=== PATIENT | female | born 1935 | race Caucasian/White ===

== ENCOUNTER 2019-04-17 11:21 | Outpatient (CLI) | payer MEDICARE, MEDICAID, SELFPAY ==
[2019-04-17 11:47] LABS: Basophils Absolute Auto 0.1 K/mm3 (0.0-0.1); Basophils Percent Auto 0.6 % (0.2-1.2); Eosinophils Absolute Auto 0.3 K/mm3 (0-0.3); Eosinophils Percent Auto 3.3 % (0-4.4); Hematocrit 45.7 % (37.0-47.0); Hemoglobin 14.4 g/dL (12.0-15.0); Immature Granulocyte Absolute 0.02 K/mm3 (0.00-0.031); Immature Granulocyte Percent A 0.2 % (0-0.5); Lymphocytes Absolute Auto 2.68 K/mm3 (0.9-3.2); Lymphocytes Percent Auto 29.8 % (18.3-44.2); Mean Corpuscular HGB Conc 31.5 g/dl (32-36); Mean Corpuscular Hemoglobin 30.1 pg (26-34); Mean Corpuscular Volume 95.6 fl (80-100); Mean Platelet Volume 9.5 fl (7.4-10.4); Monocytes Absolute Auto 0.6 K/mm3 (0.1-0.6); Monocytes Percent Auto 6.7 % (2.6-8.5); Neutrophils Absolute Auto 5.3 K/mm3 (1.3-6.7); Neutrophils Percent Auto 59.4 % (45.5-73.1); Platelet Count Result 326 k/mm3 (150-375); Red Blood Count 4.78 M/mm3 (4.2-5.4); Red Cell Distribution Width 12.8 % (11.5-14.5)
[2019-04-17 11:59] LABS: Alanine Aminotransferase 16 U/L (4-35); Albumin Level 4.4 g/dL (3.5-5.1); Alkaline Phosphatase 93 U/L (38-126); Aspartate Amino Transferase 24 U/L (14-36); Bilirubin,Total 0.3 mg/dL (0.2-1.3); Blood Urea Nitrogen 20 mg/dL (7-17); Calcium 10.2 mg/dL (8.4-10.2); Carbon Dioxide 32 mmol/L (22-30); Chloride 104 mmol/L (98-107); Estimated Glomerular Filt Rate 47; Glucose 99 mg/dL (65-105); Potassium 4.2 mmol/L (3.4-5.0); Sodium 141 mmol/L (137-145)
== END 2019-04-17 11:22 | disposition home or self-care (01) ==
LOC: ANHSURGERY 11:30
PROVIDERS: PCP Physician Assistant; Visit Provider Surgery
DX: K42.0 Umbilical hernia with obstruction, without gangrene (principal)
CPT/HCPCS: 36415; 80053; 85025

== ENCOUNTER 2019-08-04 00:23 | Outpatient (CLI) | payer MEDICARE, MEDICAID, SELFPAY ==
[2019-08-04 20:58] LABS: SARS-CoV-2 RNA PCR Negative
== END 2019-08-04 00:24 | disposition home or self-care (01) ==
LOC: ANHCOVIDDT 00:23
PROVIDERS: PCP Physician Assistant; Visit Provider Surgery
DX: Z01.812 Encounter for preprocedural laboratory examination (principal); Z11.59 Encounter for screening for other viral diseases
CPT/HCPCS: 87635; C9803; U0003

== ENCOUNTER 2019-08-04 08:11 | Outpatient (CLI) | payer MEDICARE, MEDICAID, SELFPAY ==
[2019-08-04 08:53] LABS: Basophils Absolute Auto 0.1 K/mm3 (0.0-0.1); Eosinophils Absolute Auto 0.3 K/mm3 (0-0.3); Eosinophils Percent Auto 4.2 % (0-4.4); Hematocrit 45.8 % (37.0-47.0); Hemoglobin 14.6 g/dL (12.0-15.0); Immature Granulocyte Absolute 0.02 K/mm3 (0.00-0.031); Immature Granulocyte Percent A 0.3 % (0-0.5); Lymphocytes Percent Auto 33.3 % (18.3-44.2); Mean Corpuscular HGB Conc 31.9 g/dl (32-36); Mean Corpuscular Hemoglobin 30.2 pg (26-34); Mean Corpuscular Volume 94.8 fl (80-100); Mean Platelet Volume 9.9 fl (7.4-10.4); Monocytes Absolute Auto 0.7 K/mm3 (0.1-0.6); Monocytes Percent Auto 8.3 % (2.6-8.5); Neutrophils Absolute Auto 4.1 K/mm3 (1.3-6.7); Neutrophils Percent Auto 52.9 % (45.5-73.1); Platelet Count Result 326 k/mm3 (150-375); Red Blood Count 4.83 M/mm3 (4.2-5.4); White Blood Count 7.8 K/mm3 (4.5-10.0)
[2019-08-04 09:05] LABS: Alanine Aminotransferase 12 U/L (4-35); Albumin Level 4.5 g/dL (3.5-5.1); Alkaline Phosphatase 114 U/L (38-126); Aspartate Amino Transferase 23 U/L (14-36); Bilirubin,Total 0.4 mg/dL (0.2-1.3); Blood Urea Nitrogen 19 mg/dL (7-17); Calcium 9.4 mg/dL (8.4-10.2); Carbon Dioxide 29 mmol/L (22-30); Chloride 105 mmol/L (98-107); Estimated Glomerular Filt Rate > 60; Glucose 99 mg/dL (65-105); Potassium 4.1 mmol/L (3.4-5.0); Sodium 143 mmol/L (137-145)
== END 2019-08-04 08:12 | disposition home or self-care (01) ==
LOC: ANHSURGERY 08:13
PROVIDERS: PCP Physician Assistant; Visit Provider Surgery
DX: K42.9 Umbilical hernia without obstruction or gangrene (principal)
CPT/HCPCS: 36415; 80053; 85025

== ENCOUNTER 2019-08-07 01:30 | Day surgery (SDC) | payer MEDICARE, MEDICAID, SELFPAY ==
[2019-04-11 09:21] VITALS: BMI 28.3
--- NOTE | 2019-04-24 07:13 | PM.HPGS ---
History of Present Illness History of Present Illness Consent: Risks, benefits, and alternatives of an open umbilical hernia repair with sutures have been discussed and questions answered. Patient agrees to proceed with procedure. Chief complaint: Umbilical Hernia Narrative: Mariann Kauffman is a 83 year old female that recently presented to the office after recently being seen in an [facility] for an evaluation of an umbilical hernia. Patient reports noticing a bulge at her umbilicus 4-6 months ago. Patient reports the area is becoming sore and is getting larger. Patient reports she notices the bulge everyday and nothing seems to help. She reports that the hernia just bothers her all the time and causes pain with palpation. She reports that the hernia is reducible but the majority of the time is out. Patient reports she is able to sleep on her stomach. Patient reports that she regular BM. She does reports a lump by the rectum, she is not sure if this is prolapsing again or if this is a hemorrhoid. Patient reports that she had a hysterectomy and appendectomy in 1971, a bladder and bowel tie up at different times, and cataract surgery in the past. Other medical history includes asthma, GERD, and hypertension. Patient denies ever having a colonoscopy Review of Systems Constitutional: Constitutional: Reports no additional constitutional complaints, Reports fatigue and Denies malaise Eyes: Eyes: Denies change in vision and Denies loss of vision ENT: Reports Normal hearing present, Denies change in voice, Denies dizziness, Denies hoarseness and Denies sore throat Cardiovascular: Cardiovascular: Denies chest pain, Denies leg edema and Denies dyspnea Respiratory: Respiratory: Denies cough, Denies dyspnea and Denies wheezing Gastrointestinal: Gastrointestinal: Denies hematochezia, Denies change in bowel habits and Denies heartburn Genitourinary: Genitourinary: Denies urinary frequency and Denies urinary incontinence Neurologic: Reports Normal hearing present, Denies confusion, Denies dizziness, Denies loss of vision, Denies memory loss and Denies seizure-like activity Psychiatric: Psychiatric: Denies confusion, Denies depression and Denies memory loss Endocrine: Endocrine: Denies cold intolerance and Reports fatigue Hematologic/Lymphatic: Hematologic/Lymphatic: Denies easy bleeding and Denies easy bruising Allergic/Immunologic: Allergic/Immunologic: Denies wheezing PMFSH Social History Social History Smoking status: Never smoker Alcohol intake: never Meds Home Medications and Allergies Home Medications Medication Instructions Recorded Confirmed Type alendronate 70 mg WEEKLY 01/10/19 04/11/19 History Al hyd-Mg tr-alg ac-sod bicarb 80 1 tablet DAILY 02/21/19 04/11/19 History mg-14.2 mg chewable tablet L. gasseri-B. bifidum-B longum 1.5 1 cap PO DAILY 02/21/19 04/11/19 History billion cell capsule acetaminophen 325 mg tablet 325 mg PO Q6H PRN 02/21/19 04/11/19 History diltiazem HCl 240 mg 240 mg PO DAILY 02/21/19 04/11/19 History capsule,extended release 24 hr polyethylene glycol 3350 17 gram 17 gm PO DAILY 02/21/19 04/11/19 History oral powder packet ascorbic acid (vitamin C) [Vitamin 250 mg PO BID 04/11/19 04/11/19 History C] calcium carbonate-vitamin D3 1 tablet PO DAILY 04/11/19 04/11/19 History [Calcium 600 with Vitamin D3] dextromethorphan-guaifenesin 1 tab-cap PO ONCE PRN 04/11/19 04/11/19 History [Coricidin HBP Chest Josh-Cough] przimupn-ihd-zswh-FA-lutein 1 tablet PO DAILY 04/11/19 04/11/19 History [Multivitamin Women 50 Plus] omeprazole 20 mg PO BID 04/11/19 04/11/19 History Allergies Allergy/AdvReac Type Severity Reaction Status Date / Time doxycycline Allergy Severe Palpitation Verified 04/11/19 09:11 s pain meds AdvReac Unknown Palpitation Uncoded 04/11/19 09:11 s Exam Const: General: coop
[2019-08-07] VITALS (10 sets, daily range): BP systolic 113–158; BP diastolic 56–75; PULSE 70–84; RESP 12–26; TEMP 36.3–36.5; O2SAT 92–100
[2019-08-07] MEDS: LACTATED RINGERS 1,000 ML 30 ML IV CONT (10:30)
--- NOTE | 2019-08-07 11:12 | PM.HPGS ---
History of Present Illness History of Present Illness Consent: Risks, benefits, and alternatives of an open umbilical hernia repair with sutures have been discussed and questions answered. Patient agrees to proceed with procedure. Chief complaint: Umbilical Hernia Narrative: Mariann Kauffman is a 83 year old white female that recently presented to the office after being seen in [facility] for an evaluation of an umbilical hernia. Patient reports noticing a bulge at her umbilicus 7- 9 months ago. Patient reports the area is becoming sore and is getting larger. Patient reports she notices the bulge everyday and nothing seems to help. She reports that the hernia just bothers her all the time and causes pain with palpation. She reports that the hernia is reducible but the majority of the time is out. Patient reports she is able to sleep on her stomach. Patient reports that she regular BM. She does reports a lump by the rectum, she is not sure if this is prolapsing again or if this is a hemorrhoid. Patient reports that she had a hysterectomy and appendectomy in 1971, a bladder and bowel tie up at different times, and cataract surgery in the past. Other medical history includes asthma, GERD, and hypertension. Patient denies ever having a colonoscopy Review of Systems Constitutional: Constitutional: Reports no additional constitutional complaints, Reports fatigue and Denies malaise Eyes: Eyes: Denies change in vision and Denies loss of vision ENT: Reports Normal hearing present, Denies change in voice, Denies dizziness, Denies hoarseness and Denies sore throat Cardiovascular: Cardiovascular: Denies chest pain, Denies leg edema and Denies dyspnea Comments: History of mild hypertension Respiratory: Respiratory: Denies cough, Denies dyspnea and Denies wheezing Comments: History of mild asthma Gastrointestinal: Gastrointestinal: Denies hematochezia, Denies change in bowel habits and Reports heartburn ( patient has a history of mild GERD, on omeprazole) Genitourinary: Genitourinary: Denies urinary frequency and Denies urinary incontinence Comments: history of previous hysterectomy. history of surgery for bladder and bowel prolapse Neurologic: Reports Normal hearing present, Denies confusion, Denies dizziness, Denies loss of vision, Denies memory loss and Denies seizure-like activity Psychiatric: Psychiatric: Denies confusion, Denies depression and Denies memory loss Endocrine: Endocrine: Denies cold intolerance and Reports fatigue Hematologic/Lymphatic: Hematologic/Lymphatic: Denies easy bleeding and Denies easy bruising Allergic/Immunologic: Allergic/Immunologic: Denies wheezing PMFSH Social History Social History (Reviewed 02/21/19 @ 09:29 by Yoselyn Vázquez [facility]) Smoking status: Never smoker Alcohol intake: never Meds Home Medications and Allergies Home Medications Medication Instructions Recorded Confirmed Type alendronate 70 mg WEEKLY 01/10/19 08/07/19 History Al hyd-Mg tr-alg ac-sod bicarb 80 1 tablet DAILY 02/21/19 08/07/19 History mg-14.2 mg chewable tablet L. gasseri-B. bifidum-B longum 1.5 1 cap PO DAILY 02/21/19 08/07/19 History billion cell capsule acetaminophen 325 mg tablet 325 mg PO Q6H PRN 02/21/19 08/07/19 History diltiazem HCl 240 mg 240 mg PO DAILY 02/21/19 08/07/19 History capsule,extended release 24 hr polyethylene glycol 3350 17 gram 17 gm PO DAILY 02/21/19 08/07/19 History oral powder packet ascorbic acid (vitamin C) [Vitamin 250 mg PO BID 04/11/19 08/07/19 History C] calcium carbonate-vitamin D3 1 tablet PO DAILY 04/11/19 08/07/19 History [Calcium 600 with Vitamin D3] dextromethorphan-guaifenesin 1 tab-cap PO ONCE PRN 04/11/19 08/07/19 History [Coricidin HBP Chest Josh-Cough] bcmfjbnp-zgs-mljm-FA-lutein 1 tablet PO DAILY 04/11/19 08/07/19 History [Multivitamin Women 50 Plus] omeprazole 20 mg PO BID 04/11/19 08/07/19 History Allergies Allergy/
--- NOTE | 2019-08-07 11:17 | WPDANESEPPF ---
Anes - Initial Pre Proc Eval Procedure: Operation Date: 08/07/19 12:00 Proposed Procedures p Umbilical Hernia Repair With Sutures - Blaze Saravia MD Date/Time: 08/07/19 11:17 Surgeon: Blaze Saravia MD Pre Op Diagnosis: Umbilical Hernia Patient Data Age: 83 Gender: F Height: 5 ft 3 in Weight: 71.2 kg Last Vital Signs Temp 97.7 F 08/07/19 10:30 Pulse 84 08/07/19 10:30 Resp 20 08/07/19 10:30 BP 158/73 H 08/07/19 10:30 Pulse Ox 97 08/07/19 10:30 Allergies Allergy/AdvReac Type Severity Reaction Status Date / Time doxycycline Allergy Severe Palpitation Verified 08/07/19 10:39 s pain meds AdvReac Unknown Palpitation Uncoded 08/07/19 10:39 s Home Medications Medication Instructions Recorded Confirmed Type alendronate 70 mg WEEKLY 01/10/19 08/07/19 History Al hyd-Mg tr-alg ac-sod bicarb 80 1 tablet DAILY 02/21/19 08/07/19 History mg-14.2 mg chewable tablet L. gasseri-B. bifidum-B longum 1.5 1 cap PO DAILY 02/21/19 08/07/19 History billion cell capsule acetaminophen 325 mg tablet 325 mg PO Q6H PRN 02/21/19 08/07/19 History diltiazem HCl 240 mg 240 mg PO DAILY 02/21/19 08/07/19 History capsule,extended release 24 hr polyethylene glycol 3350 17 gram 17 gm PO DAILY 02/21/19 08/07/19 History oral powder packet ascorbic acid (vitamin C) [Vitamin 250 mg PO BID 04/11/19 08/07/19 History C] calcium carbonate-vitamin D3 1 tablet PO DAILY 04/11/19 08/07/19 History [Calcium 600 with Vitamin D3] dextromethorphan-guaifenesin 1 tab-cap PO ONCE PRN 04/11/19 08/07/19 History [Coricidin HBP Chest Josh-Cough] dddayjpm-sxx-mdoy-FA-lutein 1 tablet PO DAILY 04/11/19 08/07/19 History [Multivitamin Women 50 Plus] omeprazole 20 mg PO BID 04/11/19 08/07/19 History Patient hx anesthesia problems: none Family hx anesthesia problems: none [facility] Social History Social History Smoking status: Never smoker Alcohol intake: never Anes - Eval Final PreProcedure Day of Procedure 08/07/19 11:17 Patient weight: overweight Heart: regular rate and rhythm Lungs: clear to auscultation Airway: Mallampati scale class II Neurological: alert and oriented Last oral intake: >/= 8 hours ASA classification: III Emergent: no Anesthetic plan: proceed Anesthesia type and monitoring: general (LMA or ETT) LMA and standard monitoring Informed Consent: The patient's anesthetic plan and its attendant risks and benefits were discussed with the patient/family/POA. Questions were solicited and answers provided to the satisfaction of the patient/family/POA.
[2019-08-07] MEDS: ceFAZolin 2 GM/D5W 50 ML 2 GM/50 ML BAG IVPB (12:08)
[2019-08-07] MEDS: BUPIVACAINE/EPINEPHRINE 0.5% 30 ML VIAL INFILTRATE (12:26)
--- NOTE | 2019-08-07 13:14 | P.OP_ITS ---
Procedure Note - Detailed Date of procedure: 08/07/19 Pre-op diagnosis: Umbilical Hernia Post-op diagnosis: same Procedure performed: Open repair of umbilical hernia Description of procedure: Patient was seen in the preop area and the area of umbilical hernia marked. History and physical reviewed and no changes were noted. Patient was taken the operative room place the supine position happen table. Abdomen was prepped and draped in usual sterile fashion and a curvilinear supraumbilical incision was outline just above the umbilicus across part of the bulge which was more to the right of the umbilicus than the left. Following this local anesthetic was infiltrated into the skin after performing timeout with surgery team confirming patient site of surgery. Following this we continued the incision down through subcutaneous tissues carefully dissecting out the hernia sac which was extending up into the subcutaneous tissues. I dissected superiorly around the hernia sac down to the fascia which was easily discernible. We then rotated the skin of the umbilicus off the hernia sac inferiorly until we got down to the neck of the hernia sac. Having completely circumvented the hernia sac at the level of fascia we carefully excised this at that level and passed this off the field labeled umbilical hernia sac and preperitoneal fat. There was about a 2-3 cm rounded defect in the fascia at this level. It was felt that without tension it could be pulled together with sutures. I selected 0 Ethibond sutures and on a the M-O 7 needle was used to do a [id number] closure in standard fashion with 4 sutures. Each was left long and they were all tied sequentially after pulling them up nicely approximating the superior fascia underneath the lower fascia. After closure there seemed to be a good fascial of repair. Following this more local anesthetic was placed in the skin surrounding the surronding fascia and subcutaneous tissues. Following this interrupted 3-0 Vicryl was used to bury the skin of the umbilicus down to the edge of the fascia and the rest to approximate the subcutaneous tissues. Following this a running 4 0 Monocryl suture was used to close the skin and surgical glue applied. Patient tolerated the procedure well Estimated blood loss less than 5 cc Implants: None Anesthesia: GLMA Surgeon: Blaze Saravia MD Cloth Measurer Machine: [place], OR 1st assist Estimated blood loss (mL): 5 Drains: No Packing: No Pathology: yes (Hernia sac and preperitoneal fat) Complications: No immediate complications Condition: stable Disposition: PACU Findings: There was a well-formed hernia sac without any contents in it. Was about a 2 cm round fascial defect.
== END 2019-08-07 15:50 | disposition home or self-care (01) ==
PROVIDERS: PCP Physician Assistant; Visit Provider Surgery
PROC: (CPT 49585; principal; 2019-08-07 12:00)
DX: K42.9 Umbilical hernia without obstruction or gangrene (principal); I10 Essential (primary) hypertension; K21.9 Gastro-esophageal reflux disease without esophagitis
CPT/HCPCS: 49585; 36415; 80053; 85025; 87635; 88300; 88302; C9803; J0131; J0690; J1100; J2405; J2704; J3010; J7120; U0003

== ENCOUNTER 2019-09-30 19:23 | Emergency (ER) | payer MEDICARE, MEDICAID, SELFPAY ==
--- NOTE | ~2019-09-30 | CT_ITS ---
EXAMINATION: CT brain wo con DATE: 09/30/2019 21:07 INDICATION: Headache and dizziness TECHNIQUE: Computed tomography (CT) of the head was performed without intravenous contrast. Sagittal and coronal reconstructions were performed. The mA was adjusted according to patient size. Iterative reconstruction technique was employed. The dose-length product was 605.33 mGy-cm. COMPARISON: None FINDINGS: No acute intracranial hemorrhage, acute infarction or abnormal extra axial fluid collection. Small ol d lacunar infarct at the left lentiform nucleus. There is mild scattered white matter hypoattenuation consistent with chronic small vessel ischemic disease. Ventricles are normal and symmetric. No mass/ mass effect. Changes of bilateral intraocular lens replacement. The orbits, paranasal sinuses and mas toid air cells are normal. Intracranial calcified cerebral atherosclerosis is noted. IMPRESSION: 1. No acute intracranial process. 2. 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 3. Mild scattered nonspecific white matter hypoattenuation consistent with chronic small vessel ische alireza disease. Reviewed, dictated and finalized at location A. IMPRESSION: 1. No acute intracranial process. 2. 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 3. 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
[2019-09-30 19:24] VITALS: BP 152/42; PULSE 56; RESP 20; TEMP 36.8; O2SAT 98
--- NOTE | 2019-09-30 19:36 | ECG_ITS ---
Measurements Intervals [place] Rate: 50 P: 67 [place]: 199 QRS: 18 QRSD: 102 T: 47 QT: 401 QTc: 366 Interpretive Statements SINUS RHYTHM WITH SECOND DEGREE AV BLOCK, 2:1 AV BLOCK LEFT ATRIAL ENLARGEMENT INCOMPLETE RIGHT BUNDLE BRANCH BLOCK BASELINE ARTIFACT- I, III, AVR, AVL, AVF ABNORMAL ECG Electronically Signed On 09-30-2019 20:00:58 CDT by Chandrakant Mcduffie D.O.
[2019-09-30 19:47] LABS: Basophils Absolute Auto 0.1 K/mm3 (0.0-0.1); Basophils Percent Auto 0.6 % (0.2-1.2); Eosinophils Absolute Auto 0.2 K/mm3 (0-0.3); Eosinophils Percent Auto 1.9 % (0-4.4); Hematocrit 43.3 % (37.0-47.0); Hemoglobin 14.4 g/dL (12.0-15.0); Immature Granulocyte Absolute 0.04 K/mm3 (0.00-0.031); Immature Granulocyte Percent A 0.4 % (0-0.5); Lymphocytes Absolute Auto 3.49 K/mm3 (0.9-3.2); Lymphocytes Percent Auto 32.3 % (18.3-44.2); Mean Corpuscular HGB Conc 33.3 g/dl (32-36); Mean Corpuscular Hemoglobin 30.8 pg (26-34); Mean Corpuscular Volume 92.7 fl (80-100); Mean Platelet Volume 9.8 fl (7.4-10.4); Monocytes Absolute Auto 0.9 K/mm3 (0.1-0.6); Monocytes Percent Auto 8.2 % (2.6-8.5); Neutrophils Absolute Auto 6.1 K/mm3 (1.3-6.7); Neutrophils Percent Auto 56.6 % (45.5-73.1); Platelet Count Result 289 k/mm3 (150-375); Red Blood Count 4.67 M/mm3 (4.2-5.4); Red Cell Distribution Width 13.1 % (11.5-14.5); White Blood Count 10.8 K/mm3 (4.5-10.0)
[2019-09-30 19:58] LABS: Magnesium 2.2 mg/dL (1.6-2.3)
[2019-09-30 20:01] LABS: Anion Gap 8 mmol/L (8-16); Blood Urea Nitrogen 28 mg/dL (7-17); Calcium 9.8 mg/dL (8.4-10.2); Carbon Dioxide 24 mmol/L (22-30); Chloride 108 mmol/L (98-107); Estimated Glomerular Filt Rate 60; Glucose 104 mg/dL (65-105); Potassium 4.1 mmol/L (3.4-5.0); Sodium 140 mmol/L (137-145)
[2019-09-30 20:10] LABS: Troponin I < 0.012 ng/mL (0.000-0.034)
--- NOTE | 2019-09-30 21:05 | PC.NURSE ---
Patient in CT at this time.
[2019-09-30 21:14] VITALS: BP 130/58; PULSE 85
[2019-09-30 21:15] VITALS: BP 116/84; BP 144/75; PULSE 80; PULSE 92
--- NOTE | 2019-09-30 21:29 | ED.DIZZY ---
HPI - Dizziness General Chief Complaint: Dizziness Stated Complaint: HEADACHE, DIZZINESS Time Seen by Provider: 09/30/19 20:50 Source: patient and family Mode of arrival: ambulatory Limitations: no limitations History of Present Illness HPI Narrative: 84-year-old with a history of hypertension here with complaints of on and off dizziness since 1 week. Patient states that she gets. Of dizziness associated with mild headache which last for few seconds. She denies any nausea or visual problems at that time. She presently denies any headache at this point no history of chest pain or shortness of breath. MD elicited complaint: dizziness Severity: moderate Exacerbating factors: nothing Relieving factors: nothing Associated symptoms: denies other symptoms Related Data Home Medications Medication Instructions Recorded Confirmed alendronate 70 mg WEEKLY 01/10/19 08/07/19 Al hyd-Mg tr-alg ac-sod bicarb 80 1 tablet DAILY 02/21/19 08/07/19 mg-14.2 mg chewable tablet L. gasseri-B. bifidum-B longum 1.5 1 cap PO DAILY 02/21/19 08/07/19 billion cell capsule acetaminophen 325 mg tablet 325 mg PO Q6H PRN 02/21/19 08/07/19 diltiazem HCl 240 mg 240 mg PO DAILY 02/21/19 08/07/19 capsule,extended release 24 hr polyethylene glycol 3350 17 gram 17 gm PO DAILY 02/21/19 08/07/19 oral powder packet Calcium 600 with Vitamin D3 1 tablet PO DAILY 04/11/19 08/07/19 Coricidin HBP Chest Josh-Cough 1 tab-cap PO ONCE PRN 04/11/19 08/07/19 Multivitamin Women 50 Plus 1 tablet PO DAILY 04/11/19 08/07/19 ascorbic acid (vitamin C) [Vitamin 250 mg PO BID 04/11/19 08/07/19 C] omeprazole 20 mg PO BID 04/11/19 08/07/19 Allergies Allergy/AdvReac Type Severity Reaction Status Date / Time doxycycline Allergy Severe Palpitation Verified 09/30/19 21:14 s pain meds AdvReac Unknown Palpitation Uncoded 08/07/19 10:39 s Review of Systems Review of Systems: All systems reviewed & are unremarkable except as noted in HPI and below Constitutional: Constitutional: Reports no additional constitutional complaints Eyes: Eyes: Reports no additional eye complaints ENT: Reports system reviewed and no additional complaints, except as documented Cardiovascular: Cardiovascular: Reports no additional cardiovascular complaints Respiratory: Respiratory: Reports no additional respiratory complaints Gastrointestinal: Gastrointestinal: Reports no additional gastrointestinal complaints Musculoskeletal: Musculoskeletal: Reports no additional musculoskeletal complaints PMFSH Past Medical History Medical History Asthma (Unknown) GERD (gastroesophageal reflux disease) (Unknown) Hypertension (Unknown) Vitamin D deficiency Surgical History Surgical History History of bladder surgery History of hysterectomy S/P cataract surgery Family History Family History Sibling Heart attack Hypertension Lung cancer Social History Social History Smoking status: Never smoker Alcohol intake: never Exam Narrative: Exam Narrative: GENERAL: Well-appearing, well-nourished, and in no acute distress. HEAD: Normocephalic, atraumatic. EYES: PERRLA and EOMI. ENT: Nares clear, no rhinorrhea or epistaxis. Mucous membranes moist. NECK: Supple. CHEST: Clear to auscultation. No respiratory distress. HEART: Regular rate and rhythm. No murmur heard. Normal peripheral pulses. ABDOMEN: Soft, nontender, nondistended, normal active bowel sounds. EXTREMITIES: Normal range of motion. No edema. SKIN: Warm, dry, no rash. NEURO: No focal deficits. Alert and oriented x3. PSYCH: Normal mood and affect. Course Course Emergency Course: Patient is sitting comfortably on the bed. I discussed the lab work, EKG and CT findings with the patient. Advised her to continu
[2019-09-30 21:31] VITALS: BP 116/81; PULSE 85; RESP 20; O2SAT 97
[2019-09-30 21:53] VITALS: BP 116/84; PULSE 82; RESP 18; O2SAT 97
== END 2019-09-30 21:55 | disposition home or self-care (01) ==
PROVIDERS: Emergency Medicine; Emergency Provider Family Medicine; PCP Physician Assistant
DX: G44.031 Episodic paroxysmal hemicrania, intractable (principal); I10 Essential (primary) hypertension; J45.909 Unspecified asthma, uncomplicated; K21.9 Gastro-esophageal reflux disease without esophagitis; E55.9 Vitamin D deficiency, unspecified; Z98.49 Cataract extraction status, unspecified eye; I44.1 Atrioventricular block, second degree; I45.10 Unspecified right bundle-branch block; R94.31 Abnormal electrocardiogram [ECG] [EKG]
CPT/HCPCS: 36415; 70450; 80048; 83735; 84484; 85025; 93005; 99284

== ENCOUNTER 2020-03-31 17:16 | Emergency (ER) | payer MEDICARE, MEDICAID, SELFPAY ==
[2020-03-31] VITALS (7 sets, daily range): BP systolic 148–166; BP diastolic 55–85; PULSE 42–111; RESP 18–19; TEMP 36.8; O2SAT 92–98
--- NOTE | 2020-03-31 18:18 | ED.GIBLEED ---
HPI - GI Bleed General Chief complaint: GI Bleed Stated complaint: rectal bleeding Time Seen by Provider: 03/31/20 17:59 Source: patient Mode of arrival: ambulatory Limitations: no limitations History of Present Illness HPI Narrative: This is a 84 year old female that presents to the ER for blood in the stool today. Reports history of hemorrhoids. Reports after vomiting today she noted bright red blood in the stool. Denies fever, abdominal pain, vomiting, or diarrhea. Related Data Home Medications Medication Instructions Recorded Confirmed alendronate 70 mg WEEKLY 01/10/19 08/07/19 Al hyd-Mg tr-alg ac-sod bicarb 80 1 tablet DAILY 02/21/19 08/07/19 mg-14.2 mg chewable tablet Lactobacills gasseri-Bifidobac 1 cap PO DAILY 02/21/19 08/07/19 bifidum,longum 1.5 billion cell capsule acetaminophen 325 mg tablet 325 mg PO Q6H PRN 02/21/19 08/07/19 diltiazem HCl 240 mg 240 mg PO DAILY 02/21/19 08/07/19 capsule,extended release 24 hr polyethylene glycol 3350 17 gram 17 gm PO DAILY 02/21/19 08/07/19 oral powder packet Calcium 600 with Vitamin D3 1 tablet PO DAILY 04/11/19 08/07/19 Coricidin HBP Chest Josh-Cough 1 tab-cap PO ONCE PRN 04/11/19 08/07/19 Multivitamin Women 50 Plus 1 tablet PO DAILY 04/11/19 08/07/19 ascorbic acid (vitamin C) [Vitamin 250 mg PO BID 04/11/19 08/07/19 C] omeprazole 20 mg PO BID 04/11/19 08/07/19 Allergies Allergy/AdvReac Type Severity Reaction Status Date / Time doxycycline AdvReac Severe Palpitation Verified 03/31/20 17:42 s pain meds AdvReac Unknown Palpitation Uncoded 08/07/19 10:39 s Review of Systems Review of Systems: Narrative: CONSTITUTIONAL: Denies fever GASTROINTESTINAL: Denies abdominal pain, nausea, vomiting, or diarrhea. All systems reviewed & are unremarkable except as noted in HPI and below PMFSH Past Medical History Medical History (Updated 03/31/20 @ 18:58 by Anamika Beach PA-C) Asthma (Unknown) GERD (gastroesophageal reflux disease) (Unknown) Hypertension (Unknown) Vitamin D deficiency Surgical History Surgical History History of bladder surgery History of hysterectomy S/P cataract surgery Family History Family History Sibling Heart attack Hypertension Lung cancer Social History Social History Smoking status: Never smoker Alcohol intake: never Exam Narrative: Exam Narrative: GENERAL: Elderly, well-nourished, and in no acute distress. HEAD: Normocephalic, atraumatic. EYES: EOMI. CHEST: Clear to auscultation. No respiratory distress. No wheezes rales or rhonchi HEART: Regular rate and rhythm. No murmur heard. Normal peripheral pulses. ABDOMEN: Soft, nontender, nondistended, normal active bowel sounds. EXTREMITIES: Normal range of motion. No edema. SKIN: Warm, dry, no rash. NEURO: No focal deficits. Alert and oriented x3. PSYCH: Normal mood and affect RECTAL: Several external hemorrhoids present, no active bleeding Course Vital Signs Vital signs: Vital Signs Temperature 98.2 F 03/31/20 17:20 Pulse Rate 42 L 03/31/20 17:20 Respiratory Rate 18 03/31/20 17:20 Blood Pressure 155/83 H 03/31/20 17:20 Pulse Oximetry 98 03/31/20 17:20 Temperature 98.2 F 03/31/20 17:20 Pulse Rate 75 03/31/20 18:23 Respiratory Rate 18 03/31/20 17:20 Blood Pressure 161/64 H 03/31/20 18:23 Pulse Oximetry 98 03/31/20 17:20 MDM - GI Bleed MDM Narrative Medical decision making narrative: Patient presents the emergency department for rectal bleeding. Does have history of hemorrhoids. Her vitals are stable. Hemoglobin is 14.1. She does currently have several external hemorrhoids, no active bleeding on exam. Will be started on Anusol cream and is to follow-up with general surgery. She is stable and felt appropriate for outpatient evaluation. She was g
[2020-03-31 18:20] LABS: Basophils Absolute Auto 0.1 K/mm3 (0.0-0.1); Basophils Percent Auto 0.6 % (0.2-1.2); Eosinophils Absolute Auto 0.2 K/mm3 (0-0.3); Hematocrit 44.2 % (37.0-47.0); Hemoglobin 14.1 g/dL (12.0-15.0); Immature Granulocyte Absolute 0.04 K/mm3 (0.00-0.031); Immature Granulocyte Percent A 0.4 % (0-0.5); Lymphocytes Absolute Auto 2.64 K/mm3 (0.9-3.2); Lymphocytes Percent Auto 26.8 % (18.3-44.2); Mean Corpuscular HGB Conc 31.9 g/dl (32-36); Mean Corpuscular Hemoglobin 30.7 pg (26-34); Mean Corpuscular Volume 96.1 fl (80-100); Mean Platelet Volume 9.8 fl (7.4-10.4); Monocytes Absolute Auto 0.8 K/mm3 (0.1-0.6); Monocytes Percent Auto 8.2 % (2.6-8.5); Neutrophils Absolute Auto 6.1 K/mm3 (1.3-6.7); Platelet Count Result 294 k/mm3 (150-375); Red Cell Distribution Width 13.4 % (11.5-14.5); White Blood Count 9.9 K/mm3 (4.5-10.0)
[2020-03-31] MEDS: FLUCONAZOLE 150 MG TABLET PO (18:21)
[2020-03-31 18:29] LABS: INR 0.9; Partial Thromboplastin Time 30.8 SECONDS (22.3-36.8); Prothrombin Time 12.8 Seconds (11.1-14.7)
[2020-03-31 18:31] LABS: Alanine Aminotransferase 16 U/L (4-35); Albumin Level 4.3 g/dL (3.5-5.1); Alkaline Phosphatase 94 U/L (38-126); Anion Gap 5 mmol/L (8-16); Aspartate Amino Transferase 26 U/L (14-36); Bilirubin,Total 0.3 mg/dL (0.2-1.3); Blood Urea Nitrogen 26 mg/dL (7-17); Calcium 9.9 mg/dL (8.4-10.2); Carbon Dioxide 30 mmol/L (22-30); Chloride 109 mmol/L (98-107); Estimated CRCL calculation 42 ml/min; Estimated Glomerular Filt Rate > 60; Glucose 120 mg/dL (65-105); Sodium 144 mmol/L (137-145)
== END 2020-03-31 20:05 | disposition home or self-care (01) ==
PROVIDERS: Physician Assistant; Emergency Provider Emergency Medicine
DX: K64.4 Residual hemorrhoidal skin tags (principal); J45.909 Unspecified asthma, uncomplicated; K21.9 Gastro-esophageal reflux disease without esophagitis; I10 Essential (primary) hypertension; E55.9 Vitamin D deficiency, unspecified; Z98.49 Cataract extraction status, unspecified eye
CPT/HCPCS: 36415; 80053; 85025; 85610; 85730; 86850; 86900; 86901; 99283; A9270

== ENCOUNTER 2020-04-14 14:49 | Emergency (ER) | payer MEDICARE, MEDICAID, SELFPAY ==
[2020-04-14] VITALS (11 sets, daily range): BP systolic 119–163; BP diastolic 57–98; PULSE 51–91; RESP 15–24; TEMP 36.3; O2SAT 97–99
--- NOTE | ~2020-04-14 | CT_ITS ---
EXAMINATION: CT brain wo con INDICATION: Dizziness COMPARISON: 09/30/2019 TECHNIQUE: Standard unenhanced head CT. The dose-length product (DLP) was 605.33 mGy-cm. The mA was a djusted according to patient size. Iterative reconstruction technique was employed. FINDINGS: There is no acute intraparenchymal hemorrhage. No evidence of mass lesion. No evidence of a cute infarction. There is mild periventricular and subcortical hypodensity probably related to small vessel ischemic disease. There is mild prominence of the sulci and ventricles related to cerebral atr ophy. Intracranial calcified cerebral atherosclerosis is noted. There are no extra-axial collections. There is no mass effect or midline shift. Changes in the globes are likely from ocular lens surgery. The visualized sinuses and mastoid air cells are well aerated. IMPRESSION: 1. No acute intracranial abnormality. 2. Age related findings. Reviewed, dictated and finalized at location A. 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
--- NOTE | 2020-04-14 14:56 | ECG_ITS ---
Measurements Intervals [place] Rate: 83 P: 36 MO: 203 QRS: 17 QRSD: 105 T: 37 QT: 368 QTc: 435 Interpretive Statements SINUS RHYTHM WITH INTERMITTENT SECOND DEGREE AV BLOCK INCOMPLETE RIGHT BUNDLE BRANCH BLOCK BASELINE ARTIFACT- I, II, III, AVR, AVL ABNORMAL ECG Electronically Signed On 04-14-2020 18:13:31 [employer]ROAD [employer] by Chandrakant Mcduffie D.O.
--- NOTE | 2020-04-14 16:08 | ED.DIZZY ---
HPI - Dizziness General Chief Complaint: Dizziness Stated Complaint: dizziness Time Seen by Provider: 04/14/20 15:55 Source: patient Mode of arrival: ambulatory Limitations: no limitations History of Present Illness HPI Narrative: Patient is an 84-year-old female complaining of dizziness, intermittent, accompanied by diarrhea described as loose watery nonbloody x3 months. Patient states that she was seen here before for the same complaints. Patient denies any headache, speech or visual disturbance, weakness, numbness, chest pain, shortness of breath, abdominal pain, nausea, vomiting, fever or chills. Related Data Home Medications Medication Instructions Recorded Confirmed alendronate 70 mg WEEKLY 01/10/19 08/07/19 Al hyd-Mg tr-alg ac-sod bicarb 80 1 tablet DAILY 02/21/19 08/07/19 mg-14.2 mg chewable tablet Lactobacills gasseri-Bifidobac 1 cap PO DAILY 02/21/19 08/07/19 bifidum,longum 1.5 billion cell capsule acetaminophen 325 mg tablet 325 mg PO Q6H PRN 02/21/19 08/07/19 diltiazem HCl 240 mg 240 mg PO DAILY 02/21/19 08/07/19 capsule,extended release 24 hr polyethylene glycol 3350 17 gram 17 gm PO DAILY 02/21/19 08/07/19 oral powder packet Calcium 600 with Vitamin D3 1 tablet PO DAILY 04/11/19 08/07/19 Coricidin HBP Chest Josh-Cough 1 tab-cap PO ONCE PRN 04/11/19 08/07/19 Multivitamin Women 50 Plus 1 tablet PO DAILY 04/11/19 08/07/19 ascorbic acid (vitamin C) [Vitamin 250 mg PO BID 04/11/19 08/07/19 C] omeprazole 20 mg PO BID 04/11/19 08/07/19 Allergies Allergy/AdvReac Type Severity Reaction Status Date / Time doxycycline AdvReac Severe Palpitation Verified 04/14/20 15:29 s pain meds AdvReac Unknown Palpitation Uncoded 04/14/20 15:29 s Review of Systems Review of Systems: All systems reviewed & are unremarkable except as noted in HPI and below Constitutional: Constitutional: Denies body ache(s), Denies chills, Denies excessive sweating, Denies fatigue, Denies fever(s), Denies headache(s), Denies lethargy, Denies malaise, Denies weakness and Denies weight loss Eyes: Eyes: Denies blurry vision, Denies change in vision and Denies loss of vision ENT: Denies dizziness, Denies ear discharge, Denies headache(s), Denies lip swelling, Denies epistaxis, Denies nasal congestion, Denies neck pain, Denies throat swelling and Denies tongue swelling Cardiovascular: Cardiovascular: Denies chest pain, Denies chest pain at rest, Denies chest pain with activity, Denies diaphoresis, Denies rapid heart rate, Denies edema, Denies irregular heart rhythm, Denies lightheadedness, Denies palpitations, Denies dyspnea and Denies dyspnea on exertion Respiratory: Respiratory: Denies chest congestion, Denies cough, Denies hemoptysis, Denies dyspnea and Denies dyspnea on exertion Gastrointestinal: Gastrointestinal: Denies abdominal pain, Denies melena, Denies hematochezia, Denies nausea, Denies vomiting and Denies hematemesis Musculoskeletal: Musculoskeletal: Denies abnormal gait, Denies deformity, Denies joint swelling, Denies limited range of motion, Denies neck pain and Denies numbness Neurologic: Denies Abnormal speech present, Denies abnormal gait, Denies confusion, Denies headache(s), Denies focal weakness, Denies loss of vision, Denies numbness, Denies Other visual disturbances, Denies Sensory deficit (Neuro) and Denies weakness Psychiatric: Psychiatric: Denies confusion, Denies depression, Denies auditory hallucinations, Denies homicidal ideation and Denies suicidal ideation Endocrine: Endocrine: Denies cold intolerance, Denies excessive sweating, Denies fatigue, Denies heat intolerance and Denies palpitations Hematologic/Lymphatic: Hematologic/Lymphatic: Denies easy bleeding and Denies easy bruising Allergic/Immunologic: Allergic/Immunologic: Denies lip swelling, Denies throat swelling and Denies tongue swelling PMFSH Past Medical History Medical History (Updated 04/14/20 @ 18:58 by Salazar Granados MD) Asthma (U
[2020-04-14] MEDS: SODIUM CHLORIDE 0.9% IV 1,000 ML 999 ML IV CONT (16:13)
[2020-04-14 16:21] LABS: Basophils Absolute Auto 0.1 K/mm3 (0.0-0.1); Basophils Percent Auto 0.6 % (0.2-1.2); Eosinophils Absolute Auto 0.2 K/mm3 (0-0.3); Eosinophils Percent Auto 1.7 % (0-4.4); Hematocrit 43.4 % (37.0-47.0); Hemoglobin 13.7 g/dL (12.0-15.0); Immature Granulocyte Absolute 0.03 K/mm3 (0.00-0.031); Immature Granulocyte Percent A 0.3 % (0-0.5); Lymphocytes Absolute Auto 3.12 K/mm3 (0.9-3.2); Lymphocytes Percent Auto 30.4 % (18.3-44.2); Mean Corpuscular HGB Conc 31.6 g/dl (32-36); Mean Corpuscular Hemoglobin 30.6 pg (26-34); Mean Corpuscular Volume 97.1 fl (80-100); Monocytes Absolute Auto 0.8 K/mm3 (0.1-0.6); Monocytes Percent Auto 7.5 % (2.6-8.5); Neutrophils Absolute Auto 6.1 K/mm3 (1.3-6.7); Neutrophils Percent Auto 59.5 % (45.5-73.1); Platelet Count Result 303 k/mm3 (150-375); Red Blood Count 4.47 M/mm3 (4.2-5.4); Red Cell Distribution Width 13.5 % (11.5-14.5); White Blood Count 10.3 K/mm3 (4.5-10.0)
[2020-04-14 16:36] LABS: Alanine Aminotransferase 16 U/L (4-35); Albumin Level 4.4 g/dL (3.5-5.1); Alkaline Phosphatase 99 U/L (38-126); Anion Gap 6 mmol/L (8-16); Aspartate Amino Transferase 27 U/L (14-36); Bilirubin,Total 0.2 mg/dL (0.2-1.3); Blood Urea Nitrogen 27 mg/dL (7-17); Calcium 9.8 mg/dL (8.4-10.2); Carbon Dioxide 28 mmol/L (22-30); Chloride 108 mmol/L (98-107); Estimated Glomerular Filt Rate 60; Glucose 107 mg/dL (65-105); Potassium 4.6 mmol/L (3.4-5.0); Sodium 142 mmol/L (137-145)
[2020-04-14 18:21] LABS: Troponin I < 0.012 ng/mL (0.000-0.034)
== END 2020-04-14 19:26 | disposition home or self-care (01) ==
PROVIDERS: Emergency Provider Emergency Medicine
DX: H81.10 Benign paroxysmal vertigo, unspecified ear (principal); J45.909 Unspecified asthma, uncomplicated; K21.9 Gastro-esophageal reflux disease without esophagitis; I10 Essential (primary) hypertension; E55.9 Vitamin D deficiency, unspecified; Z98.49 Cataract extraction status, unspecified eye; I44.1 Atrioventricular block, second degree; I45.10 Unspecified right bundle-branch block
CPT/HCPCS: 36415; 70450; 80053; 84484; 85025; 93005; 96360; 99284; J7030

== ENCOUNTER 2020-05-17 13:50 | Outpatient (CLI) | payer MEDICARE, MEDICAID, SELFPAY ==
--- NOTE | ~2020-05-17 | XR_ITS ---
EXAMINATION: XR wrist RT min 3V EXAM DATE: 05/17/2020 14:12 INDICATION: Right wrist, thumb pain. TECHNIQUE: Right wrist frontal, frontal with ulnar deviation, oblique and lateral projections obtain ed and reviewed. There is no prior study for comparison. FINDINGS: Right wrist scapholunate joint space is maintained. There is moderate triscaphe and 1st car pometacarpal primary osteoarthritis. There are no acute fractures or dislocations identified. There is no subcutaneous gas. The soft tissue is unremarkable. There are no radiopaque foreign bodies. There are no bony erosions identified. 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 Reviewed, dictated and finalized at location A.
== END 2020-05-17 13:51 | disposition home or self-care (01) ==
PROVIDERS: PCP Nurse Practitioner Family; Visit Provider Nurse Practitioner Family
DX: M19.031 Primary osteoarthritis, right wrist (principal)
CPT/HCPCS: 73110

== ENCOUNTER 2021-08-10 05:41 | Emergency (ER) | payer MEDICARE, MEDICAID, SELFPAY ==
[2021-08-10] VITALS (13 sets, daily range): BP systolic 146–194; BP diastolic 50–81; PULSE 47–85; RESP 14–20; TEMP 36.3; O2SAT 94–100
--- NOTE | ~2021-08-10 | XR_ITS ---
XR hip RT 2V w AP pelvis DATE: 08/10/2021 06:31 INDICATION: Right hip pain TECHNIQUE: AP pelvis. AP and lateral views of right hip COMPARISON: None FINDINGS: Abdominal aortic and bilateral common iliac and left external iliac Osteopenia. There is degenerative change at the sacroiliac joints and pubic symphysis. No pelvic fracture or bone destruction. No right hip fracture or dislocation, avascular necrosis or bone destruction is detected. Mild right hip osteoarthritis. IMPRESSION: Osteopenia Mild right hip osteoarthritis Reviewed, dictated and finalized at location A.
--- NOTE | ~2021-08-10 | CT_ITS ---
EXAMINATION: CT lumbar spine wo con DATE: 08/10/2021 08:36 INDICATION: Right leg radiculopathy TECHNIQUE: Computed tomography (CT) of the lumbar spine was performed without intravenous contrast. A utomated exposure control and iterative reconstruction technique were employed. Exam dose: 918.55 mG y-cm total exam DLP. COMPARISON: None FINDINGS: There is osteopenia. There is levoscoliosis of the lower thoracic and lumbar spine. There is severe degenerative disc disease at L1 to with 2.6 mm associated retrolisthesis. There is severe degenerative disc disease at L2-3 with associated 3.4 mm retrolisthesis. Moderate degenerative disease at L3-4, L4-5 and mild degenerative disease at L5-S1. There is prominent degenerative change of the apophyseal joints of the lumbar spine with associated g rade 1 anterolisthesis at L5-S1. No fracture or bone destruction or spondylolisthesis is detected. Incidentally noted are right renal cysts. Is extensive calcification of the abdominal aorta and iliac arteries without evidence of aneurysm. Numerous diverticula of the sigmoid: IMPRESSION: Levoscoliosis Multilevel degenerative disc disease, most pronounced at L1-2 and L2-3, with retrolisthesis at each o f these levels Degenerative change at the apophyseal joints, with associated grade 1 anterolisthesis at L5-S1 Reviewed, dictated and finalized at Location A. Reviewed, dictated and finalized at location A. IMPRESSION: Levoscoliosis Multilevel degenerative disc disease, most pronounced at L1-2 and L2-3, with re trolisthesis at each of these levels Degenerative change at the apophyseal joints, with associated grade 1 anterolis thesis at L5-S1
--- NOTE | ~2021-08-10 | US_ITS ---
US venous doppler LE RT DATE: 08/10/2021 07:31 INDICATION: Right leg pain TECHNIQUE: Real-time and color flow imaging and Doppler analysis of the veins of the right lower extr emity COMPARISON: None FINDINGS: The right greater saphenous vein is patent. There is spontaneous and phasic flow and normal augmentation and color flow signal and normal compression of the deep veins of the right leg. IMPRESSION: No evidence of deep venous thrombosis of right lower extremity Reviewed, dictated and finalized at Location A. Reviewed, dictated and finalized at location A.
--- NOTE | ~2021-08-10 | XR_ITS ---
XR femur RT min 2V DATE: 08/10/2021 06:31 INDICATION: Right leg pain TECHNIQUE: AP and lateral views COMPARISON: None FINDINGS: There is osteopenia. No fracture or dislocation, periosteal reaction or bone destruction of the right femur. Mild right hip and knee osteoarthritis. IMPRESSION: Mild osteoarthritis of the right hip and knee Osteopenia Reviewed, dictated and finalized at location A.
--- NOTE | 2021-08-10 06:16 | PC.NURSE ---
Pt to XR via stretcher at this time
[2021-08-10] MEDS: ACETAMINOPHEN 500 MG TABLET 1000 MG PO (06:38)
--- NOTE | 2021-08-10 06:52 | ED.GENADULT ---
HPI - General Adult General Chief complaint: Extremity Problem,Nontraumatic <Dima Mcneil MD - Last Filed: 08/11/21 04:14> Stated complaint: RIGHT LEG PAIN ALL NIGHT <Dima Mcneil MD - Last Filed: 08/11/21 04:14> Time Seen by Provider: 08/10/21 05:42 <Dima Mcneil MD - Last Filed: 08/11/21 04:14> History of Present Illness HPI narrative: 85-year-old female presented to the emergency department from home for evaluation of right leg pain that radiates from her hip to her knee. Patient states that she feels this is possibly her underlying arthritis but the granddaughter was concerned that it may be more serious. Patient denies any falls or injuries. <Dima Mcneil MD - Last Filed: 08/11/21 04:14> Related Data Home medications: Home Medications Medication Instructions Recorded Confirmed alendronate 70 mg tablet 70 mg WEEKLY 01/10/19 08/07/19 Al hyd-Mg tr-alg ac-sod bicarb 80 1 tablet DAILY 02/21/19 08/07/19 mg-14.2 mg chewable tablet (Gaviscon) Lactobacills gasseri-Bifidobac 1 cap PO DAILY 02/21/19 08/07/19 bifidum,longum 1.5 billion cell capsule ([employer]) acetaminophen 325 mg tablet 325 mg PO Q6H PRN PAIN 02/21/19 08/07/19 diltiazem HCl 240 mg 240 mg PO DAILY 02/21/19 08/07/19 capsule,extended release 24 hr (Cartia XT) polyethylene glycol 3350 17 gram 17 gm PO DAILY 02/21/19 08/07/19 oral powder packet (Miralax) ascorbic acid (vitamin C) 250 mg 250 mg PO BID 04/11/19 08/07/19 tablet (Vitamin C) calcium carbonate 600 mg-vitamin 1 tablet PO DAILY 04/11/19 08/07/19 D3 10 mcg (400 unit) chewable tablet (Calcium 600 with Vitamin D3) dextromethorphan-guaifenesin 10 1 tab-cap PO ONCE PRN Congestion 04/11/19 08/07/19 mg-200 mg capsule (Coricidin HBP Chest Congestion-Cough) multivit with 1 tablet PO DAILY 04/11/19 08/07/19 hbsojtlh-lupj-ZZ-lutein 8 mg iron-400 mcg-300 mcg tablet (Multivitamin Women 50 Plus) omeprazole 20 mg tablet,delayed 20 mg PO BID 04/11/19 08/07/19 release <Dima Mcenil MD - Last Filed: 08/11/21 04:14> Allergies/adverse reactions: Allergies Allergy/AdvReac Type Severity Reaction Status Date / Time doxycycline AdvReac Severe Palpitation Verified 08/10/21 05:55 s amlodipine AdvReac Dizziness Verified 08/10/21 05:55 pain meds AdvReac Unknown Palpitation Uncoded 08/10/21 05:55 s <Dima Mcneil MD - Last Filed: 08/11/21 04:14> Review of Systems Review of Systems: CONSTITUTIONAL: Denies fever, chills, or sweats. EYES: Denies visual changes, redness, or discharge. ENT: Denies rhinorrhea, congestion, sore throat, or otalgia. CARDIOVASCULAR: Denies chest pain, palpitations, or edema. RESPIRATORY: Denies cough or dyspnea. GASTROINTESTINAL: Denies abdominal pain, nausea, vomiting, or diarrhea. GENITOURINARY: Denies dysuria or hematuria. SKIN: Denies rash or itching. MUSCULOSKELETAL: See HPI NEUROLOGIC: Denies headache, numbness, or weakness. <Dima Mcneil MD - Last Filed: 08/11/21 04:14> [facility] Past Medical History Medical History: Medical History (Updated 08/11/21 @ 04:14 by Dima Mcneil MD) Asthma (Unknown) GERD (gastroesophageal reflux disease) (Unknown) Hypertension (Unknown) Vitamin D deficiency <Dima Mcneil MD - Last Filed: 08/11/21 04:14> Surgical History Surgical History: Surgical History History of bladder surgery History of hysterectomy S/P cataract surgery <Dima Mcneil MD - Last Filed: 08/11/21 04:14> Family History Family History: Family History Sibling Heart attack Hypertension Lung cancer <Dima Mcneil MD - Last Filed: 08/11/21 04:14> Social History Social History: Social History Smoking status: Never smoker Alcohol intake:
--- NOTE | 2021-08-10 06:59 | PC.NURSE ---
Pt able to ambulate with minimal assistance to bedside commode.
[2021-08-10 07:08] LABS: Basophils Absolute Auto 0.1 K/mm3 (0.0-0.1); Basophils Percent Auto 0.4 % (0.2-1.2); Eosinophils Absolute Auto 0.1 K/mm3 (0-0.3); Eosinophils Percent Auto 0.7 % (0-4.4); Hematocrit 42.5 % (37.0-47.0); Hemoglobin 13.6 g/dL (12.0-15.0); Immature Granulocyte Absolute 0.04 K/mm3 (0.00-0.031); Immature Granulocyte Percent A 0.3 % (0-0.5); Lymphocytes Absolute Auto 1.86 K/mm3 (0.9-3.2); Lymphocytes Percent Auto 14.7 % (18.3-44.2); Mean Corpuscular Volume 93.6 fl (80-100); Monocytes Absolute Auto 1.1 K/mm3 (0.1-0.6); Monocytes Percent Auto 8.5 % (2.6-8.5); Neutrophils Absolute Auto 9.5 K/mm3 (1.3-6.7); Neutrophils Percent Auto 75.4 % (45.5-73.1); Platelet Count Result 304 k/mm3 (150-375); Red Blood Count 4.54 M/mm3 (4.2-5.4); Red Cell Distribution Width 13.4 % (11.5-14.5); White Blood Count 12.7 K/mm3 (4.5-10.0)
[2021-08-10 07:19] LABS: Appearance Urine Clear (Clear); Bilirubin Urine Negative (Negative); Blood Urine Trace-lysed (Negative); Color Urine Yellow (Yellow); Glucose Urine UA Negative (Negative); Ketones Urine Negative (Negative); Leukocyte Esterase Ur 2+ LEU/UL (Negative); Nitrate Urine Negative (Negative); Protein Urine Negative (Negative); Specific Grav Ur <= 1.005 (1.001-1.035); Urobilinogen Urine 0.2 mg/dL (<2.0)
--- NOTE | 2021-08-10 07:19 | PC.NURSE ---
Assumed care of pt from [place]. Pt resting on stretcher at this time
[2021-08-10 07:20] LABS: Alanine Aminotransferase 9 U/L (6-35); Alkaline Phosphatase 96 U/L (38-126); Anion Gap 7 mmol/L (8-16); Aspartate Amino Transferase 16 U/L (14-36); Bilirubin,Total 0.4 mg/dL (0.2-1.3); Blood Urea Nitrogen 19 mg/dL (7-17); Calcium 9.3 mg/dL (8.4-10.2); Carbon Dioxide 25 mmol/L (22-30); Chloride 109 mmol/L (98-107); Estimated Glomerular Filt Rate > 60; Glucose 121 mg/dL (65-110); Sodium 141 mmol/L (137-145)
--- NOTE | 2021-08-10 07:26 | PC.NURSE ---
Pt taken to US via stretcher
[2021-08-10 07:28] LABS: Bacteria Urine Trace /hpf; RBC Urine 0-2 /hpf (0-2); Squamous Epithelial Cell Urine Rare /hpf (Few); Transitional Epi Cells Urine Rare /hpf (None Seen)
[2021-08-10 07:29] LABS: Add Urine Microscopic? YES
--- NOTE | 2021-08-10 07:52 | PC.NURSE ---
Pt refused hydralazine at this time she stated she has an allergy to this medication and does not want to take this med.
--- NOTE | 2021-08-10 10:10 | ECG_ITS ---
Measurements Intervals [place] Rate: 43 P: DC: 0 QRS: 28 QRSD: 103 T: 45 QT: 443 QTc: 379 Interpretive Statements SINUS RHYTHM WITH COMPLETE HEART BLOCK JUNCTIONAL ESCAPE RHYTHM INCOMPLETE RIGHT BUNDLE BRANCH BLOCK BASELINE ARTIFACT- I, II, III, AVR, AVL, AVF, V1 ABNORMAL ECG Electronically Signed On 08-10-2021 17:08:05 CDT by Chandrakant Mcduffie D.O.
--- NOTE | 2021-08-10 11:09 | ECG_ITS ---
Measurements Intervals [place] Rate: 48 P: 217 AK: 130 QRS: 17 QRSD: 106 T: 37 QT: 445 QTc: 398 Interpretive Statements SINUS RHYTHM WITH SECOND DEGREE AV BLOCK, TYPE I OR II INCOMPLETE RIGHT BUNDLE BRANCH BLOCK BASELINE ARTIFACT- I, II, III, AVR, AVL, AVF ABNORMAL ECG Electronically Signed On 08-10-2021 17:18:51 CDT by Chandrakant Mcduffie D.O.
== END 2021-08-10 12:54 | disposition home or self-care (01) ==
PROVIDERS: Emergency Medicine; Emergency Provider Emergency Medicine; PCP Nurse Practitioner Family
DX: M16.11 Unilateral primary osteoarthritis, right hip (principal); I10 Essential (primary) hypertension; J45.909 Unspecified asthma, uncomplicated; K21.9 Gastro-esophageal reflux disease without esophagitis; E55.9 Vitamin D deficiency, unspecified; Z98.49 Cataract extraction status, unspecified eye; I44.2 Atrioventricular block, complete; I45.10 Unspecified right bundle-branch block; I44.1 Atrioventricular block, second degree; M51.36 Other intervertebral disc degeneration, lumbar region; M85.89 Other specified disorders of bone density and structure, multiple sites
CPT/HCPCS: 36415; 72131; 73502; 73552; 80053; 81001; 85025; 93005; 93971; 99284; A9270

== ENCOUNTER 2021-10-03 17:37 | Emergency (ER) | payer MEDICARE, MEDICAID, SELFPAY ==
[2021-10-03 17:52] VITALS: BP 214/62; PULSE 86; RESP 18; TEMP 37.3; O2SAT 98
[2021-10-03 17:56] VITALS: BP 214/62; PULSE 86; RESP 18; TEMP 37.3; O2SAT 98
--- NOTE | 2021-10-03 18:15 | ED.EAR ---
HPI - Ear Problem General Chief complaint: Ear Stated complaint: ear pain Time Seen by Provider: 10/03/21 18:15 History of Present Illness HPI Narrative: Mariann Kauffman is a 86 yo female with a PMH of osteoporosis, HTN, GERD, comes with complaints of right ear pain for the last week. He has used we oil but still has clogging of her ear Related Data Home Medications Medication Instructions Recorded Confirmed alendronate 70 mg tablet 70 mg WEEKLY 01/10/19 08/07/19 Al hyd-Mg tr-alg ac-sod bicarb 80 1 tablet DAILY 02/21/19 08/07/19 mg-14.2 mg chewable tablet (Gaviscon) Lactobacills gasseri-Bifidobac 1 cap PO DAILY 02/21/19 08/07/19 bifidum,longum 1.5 billion cell capsule ([employer]) acetaminophen 325 mg tablet 325 mg PO Q6H PRN PAIN 02/21/19 08/07/19 diltiazem HCl 240 mg 240 mg PO DAILY 02/21/19 08/07/19 capsule,extended release 24 hr (Cartia XT) polyethylene glycol 3350 17 gram 17 gm PO DAILY 02/21/19 08/07/19 oral powder packet (Miralax) ascorbic acid (vitamin C) 250 mg 250 mg PO BID 04/11/19 08/07/19 tablet (Vitamin C) calcium carbonate 600 mg-vitamin 1 tablet PO DAILY 04/11/19 08/07/19 D3 10 mcg (400 unit) chewable tablet (Calcium 600 with Vitamin D3) dextromethorphan-guaifenesin 10 1 tab-cap PO ONCE PRN Congestion 04/11/19 08/07/19 mg-200 mg capsule (Coricidin HBP Chest Congestion-Cough) multivit with 1 tablet PO DAILY 04/11/19 08/07/19 yhojjqnj-ztgd-MK-lutein 8 mg iron-400 mcg-300 mcg tablet (Multivitamin Women 50 Plus) omeprazole 20 mg tablet,delayed 20 mg PO BID 04/11/19 08/07/19 release Metamucil 10/03/21 apple cider vinegar 10/03/21 Allergies Allergy/AdvReac Type Severity Reaction Status Date / Time doxycycline AdvReac Severe Palpitation Verified 10/03/21 17:53 s amlodipine AdvReac Dizziness Verified 10/03/21 17:53 pain meds AdvReac Unknown Palpitation Uncoded 10/03/21 17:53 s Review of Systems Review of Systems: CONSTITUTIONAL: Denies fever, chills, sweats. EYES: Denies visual changes, redness, discharge. ENT: Denies rhinorrhea, congestion, sore throat, right otalgia. CARDIOVASCULAR: Denies chest pain, palpitations, edema. RESPIRATORY: Denies dyspnea, wheezing, cough GASTROINTESTINAL: Denies abdominal pain, nausea, vomiting, diarrhea. GENITOURINARY: Denies dysuria, hematuria, abnormal discharge SKIN: Denies rash or itching. NEUROLOGIC: Denies numbness, or focal weakness. PSYCHIATRIC: Denies anxiety or depression. [facility] Past Medical History Medical History Asthma (Unknown) GERD (gastroesophageal reflux disease) (Unknown) Hypertension (Unknown) Osteoporosis Vitamin D deficiency Surgical History Surgical History History of bladder surgery History of hysterectomy S/P cataract surgery Family History Family History Sibling Heart attack Hypertension Lung cancer Social History Social History Smoking status: Never smoker Alcohol intake: never Gender identity (if verbalized by the patient): Female Comments At time of signature, I agree with nursing past medical, surgical, social and family history. There is no relevant family history pertinent to the presenting complaint. Exam Narrative: GENERAL: This is a well-nourished, well-developed patient, in mild distress. HEAD: normocephalic, atraumatic. EYES: Sclera clear/white. Vision is grossly intact. EARS: External ears normal, auditory canals c on right is swollen and erythematous and without drainage, TMs normal without perforation. Hearing grossly intact. NOSE: External nose normal without nasal discharge, nares without redness, no rhinorrhea. THROAT: Mucous membranes moist, NECK: Neck supple, non-tender CARDIOVASCULAR: Regular rate and
--- NOTE | 2021-10-03 18:30 | PC.NURSE ---
title insurance examiner in to do ear wick.
== END 2021-10-03 18:41 | disposition home or self-care (01) ==
PROVIDERS: Emergency Provider Nurse Practitioner; PCP Nurse Practitioner Family
DX: H66.001 Acute suppurative otitis media without spontaneous rupture of ear drum, right ear (principal); M81.0 Age-related osteoporosis without current pathological fracture; I10 Essential (primary) hypertension; K21.9 Gastro-esophageal reflux disease without esophagitis
CPT/HCPCS: 99213; G0463

== ENCOUNTER 2022-10-10 15:34 | Emergency (ER) | payer MEDICARE, MEDICAID, SELFPAY ==
--- NOTE | ~2022-10-10 | XR_ITS ---
Left ankle Technique: AP, oblique, and lateral views were obtained. Clinical History: Pain Findings: No acute fracture or dislocation is seen. Osseous alignment is anatomic. Ankle mortise and other visualized joint spaces are preserved. Soft tissues are otherwise unremarkable. Impression: Unremarkable left ankle. Reviewed, dictated and finalized at location . Impression: Unremarkable left ankle.
[2022-10-10 16:10] VITALS: BP 148/79; PULSE 65; RESP 14; TEMP 37.2; O2SAT 98
--- NOTE | 2022-10-10 16:40 | ED.GENADULT ---
HPI - General Adult General Chief complaint: Extremity Problem,Nontraumatic Stated complaint: Left Leg/Foot Pain Time Seen by Provider: 10/10/22 16:41 Source: patient, RN notes reviewed and old records reviewed Mode of arrival: ambulatory Limitations: no limitations History of Present Illness HPI narrative: 87 year old female presents to [facility] care with complaints of injury 10 years ago when she tripped in to a hole and for the past 2 days having burning and tingling pain to her left foot medial aspect with no new injury recalled. Patient verbalizes pain to her heel area with some burning and tingling to her left foot. Circulation sensation and mobility intact to left foot. MD complaint: left foot and heel pain Onset (ago): day(s) (2) Location: left and lower extremity (foot and heel) Severity: moderate Pain Consistency: intermittent Exacerbating factors: other (ambulation) Treatments prior to arrival: other (Tylenol) Related Data Home Medications Medication Instructions Recorded Confirmed alendronate 70 mg tablet 70 mg WEEKLY 01/10/19 10/10/22 diltiazem HCl 240 mg 240 mg PO DAILY 02/21/19 10/10/22 capsule,extended release 24 hr (Cartia XT) polyethylene glycol 3350 17 gram 17 gm PO DAILY 02/21/19 10/10/22 oral powder packet (Miralax) calcium carbonate 600 mg-vitamin 1 tablet PO DAILY 04/11/19 10/10/22 D3 10 mcg (400 unit) chewable tablet (Calcium 600 with Vitamin D3) omeprazole 20 mg tablet,delayed 20 mg PO BID 04/11/19 10/10/22 release carvedilol 12.5 mg tablet 12.5 mg PO BID 10/10/22 10/10/22 Allergies Allergy/AdvReac Type Severity Reaction Status Date / Time doxycycline AdvReac Severe Palpitation Verified 10/10/22 16:14 s amlodipine AdvReac Dizziness Verified 10/10/22 16:14 pain meds AdvReac Unknown Palpitation Uncoded 10/10/22 16:14 s Review of Systems Review of Systems: CONSTITUTIONAL: Denies fever, chills, or sweats. EYES: Denies visual changes, redness, or discharge. ENT: Denies rhinorrhea, congestion, sore throat, or otalgia. CARDIOVASCULAR: Denies chest pain, palpitations, or edema. RESPIRATORY: Denies cough or dyspnea. GASTROINTESTINAL: Denies abdominal pain, nausea, vomiting, or diarrhea. GENITOURINARY: Denies dysuria or hematuria. SKIN: Denies rash or itching. MUSCULOSKELETAL: Denies back pain,positive for left foot and heel pain, or myalgia. NEUROLOGIC: Denies headache, numbness, or weakness. PSYCHIATRIC: Denies anxiety or depression. All systems reviewed & are unremarkable except as noted in HPI and below PMFSH Past Medical History Medical History Asthma (Unknown) GERD (gastroesophageal reflux disease) (Unknown) Hypertension (Unknown) Osteoporosis Vitamin D deficiency Surgical History Surgical History History of bladder surgery History of hysterectomy S/P cataract surgery Family History Family History Sibling Heart attack Hypertension Lung cancer Social History Social History Smoking status: Never smoker Alcohol intake: never Gender identity (if verbalized by the patient): Female Comments At time of signature, agree with nursing past medical, surgical, social and family history. There is no relevant family history pertinent to the presenting complaint Exam Narrative: GENERAL: Well-appearing, well-nourished, and in no acute distress. HEAD: Normocephalic, atraumatic. EYES: PERRLA and EOMI. ENT: Nares clear, no rhinorrhea or epistaxis. Mucous membranes moist. NECK: Supple.no lymphadenopathy CHEST: Clear to auscultation. No respiratory distress.SAO2 98% on room air HEART: Regular rate and rhythm. No murmur heard. Normal peripheral pulses. ABDOMEN: Soft, nontender, nondistended, normal active bowel sounds. EXTREMITIES:
== END 2022-10-10 16:41 | disposition home or self-care (01) ==
PROVIDERS: Emergency Provider Registered Nurse; PCP Nurse Practitioner Family
DX: M25.572 Pain in left ankle and joints of left foot (principal); J45.909 Unspecified asthma, uncomplicated; K21.9 Gastro-esophageal reflux disease without esophagitis; M81.0 Age-related osteoporosis without current pathological fracture; E55.9 Vitamin D deficiency, unspecified; I10 Essential (primary) hypertension
CPT/HCPCS: 73610; 73630; 99213; G0463

== ENCOUNTER 2024-03-22 11:33 | Emergency (ER) | payer MEDICARE, MEDICAID, SELFPAY ==
--- NOTE | ~2024-03-22 | XR_ITS ---
EXAMINATION: [id number] DATE: 03/22/2024 12:06 INDICATION: Diffuse right knee pain post fall TECHNIQUE: AP and lateral views of the right knee were obtained. COMPARISON: None. FINDINGS: Bone alignment is normal. No fracture or joint effusion. Tricompartmental osteoarthritis with mild josi int space narrowing in the medial lateral compartments and small marginal osteophytes in the patellof emoral compartment. Likely degenerative subarticular cystlike change along the patellar apical ridge. There is also a small enthesophyte at the proximal pole of the patella. Atherosclerotic calcificatio ns along the popliteal and distal femoral arteries. Soft tissues are otherwise unremarkable. IMPRESSION: 1. 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 No joint effusion or acute osseous abnorma lity. Reviewed, dictated and finalized at location A. [employer] SECUR[employer] MANAGER IMPRESSION: 1. 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 No joint effusion or acute osseous abnormality.
[2024-03-22 11:50] VITALS: BP 183/84; PULSE 98; RESP 16; TEMP 36.1; O2SAT 98
--- NOTE | 2024-03-22 12:05 | ED.LOWEXIN ---
HPI - Extremity Injury (Lower) General Chief Complaint: Extremity Injury, Lower Stated Complaint: right knee injury after a fall Time Seen by Provider: 03/22/24 12:18 Source: patient and RN notes reviewed Mode of arrival: ambulatory Limitations: no limitations History of Present Illness HPI Narrative: 88-year-old female presents concern for knee injury. Reports she was feeding her catheterization this morning when she lost her balance and fell on her right side. She reports she started having right knee pain. She reports it feels better when it is straight, it hurts to bear weight and hurts at baseline. She has been using walker for mobility since she fell. Related Data Home Medications ?Medication ?Instructions ?Recorded ?Confirmed ?Last Taken ?Type alendronate 70 mg tablet 70 mg PO WEEKLY 01/10/19 03/22/24 Unknown History diltiazem HCl 240 mg 240 mg PO DAILY 02/21/19 03/22/24 Unknown History capsule,extended release 24 hr (Cartia XT) polyethylene glycol 3350 17 gram 17 gm PO DAILY 02/21/19 03/22/24 Unknown History oral powder packet (Miralax) calcium 600 mg (as carbonate)-vit 1 tablet PO DAILY 04/11/19 03/22/24 Unknown History D3 10 mcg (400 unit) chewable tablet (Calcium 600 with Vitamin D3) omeprazole 20 mg tablet,delayed 20 mg PO BID 04/11/19 03/22/24 Unknown History release carvedilol 12.5 mg tablet 12.5 mg PO BID 10/10/22 03/22/24 Unknown History Allergies Allergy/AdvReac Type Severity Reaction Status Date / Time doxycycline AdvReac Severe Palpitation Verified 03/22/24 12:00 s amlodipine AdvReac Dizziness Verified 03/22/24 12:00 pain meds AdvReac Unknown Palpitation Uncoded 03/22/24 12:00 s Review of Systems Review of Systems: CONSTITUTIONAL: Denies malaise, chills, sweats, or fever. SKIN: Denies rash or itching, open skin, laceration, abrasion, redness, warmth, swelling. MUSCULOSKELETAL: Reports right knee pain NEUROLOGIC: Denies numbness, weakness All systems reviewed & are unremarkable except as noted in HPI and below PMFSH Past Medical History Medical History Asthma (Unknown) GERD (gastroesophageal reflux disease) (Unknown) Hypertension (Unknown) Osteoporosis Vitamin D deficiency Surgical History Surgical History History of bladder surgery History of hysterectomy S/P cataract surgery Family History Family History Sibling Heart attack Hypertension Lung cancer Social History Social History Smoking status: Never smoker Alcohol intake: never Gender identity (if verbalized by the patient): Female Comments At time of signature, agree with nursing past medical, surgical, social and family history. There is no relevant family history pertinent to the presenting complaint Exam Narrative: GENERAL: Well-appearing, well-nourished, and in no acute distress. HEAD: Normocephalic, atraumatic. EYES: PERRLA, conjunctivae clear NECK: Supple. CHEST: Speaks in full sentences. No respiratory distress. HEART: Regular rate and rhythm. Normal and equal peripheral pulses. EXTREMITIES: Right knee has grossly normal strength and sensation, grossly normal range of motion. No edema or ecchymosis. 5/5 strength with knee flexion and extension. Normal sensation with sensitivity to light touch and pain. Anterior tenderness. No open wounds, no skin tenting, no devitalized tissue or atrophy, no trophic changes, no obvious deformity, alignment normal, nearby joints and structures intact. Distal pulses palpable and equal bilaterally, skin warm, dry, pink. Capillary refill less than 3 seconds. SKIN: Warm, dry, no rash. NEURO: Alert and oriented x3. PSYCH: Normal mood and affect Course Course Emergency Course: Patient is aware of diagnosis, understands and agrees to treatment plan. Anticipatory guidance given. Patient agrees to follow-up as directed and is aware of reasons to seek care at the emergency department. Portions of this record may have been created with voice recognition software Level of Care: Express Care Visit Vital Signs Vital signs: Vital Signs Temperature 97.0 F L 03/22/24 11:50 Pulse Rate 98 03/22/24 11:50 Respiratory Rate 16 03/22/24 11:50 Blood Pressure 183/84 H 03/22/24 11:50 Pulse Oximetry 98 03/22/24 11:50 Oxygen Delivery Room Air 03/22/24 11:50 Temperature 97.0 F L 03/22/24 11:50 Pulse Rate 98 03/22/24 11:50 Respiratory Rate 16 03/22/24 11:50 Blood Pressure 183/84 H 03/22/24 11:50 Pulse Oximetry 98 03/22/24 11:50 Oxygen Delivery Room Air 03/22/24 11:50 Reviewed. MDM - Extremity Injury (Lower) MDM Narrative Medical decision making narrative: Patients injury and pain is consistent with musculoskeletal etiology. No signs of neurological or vascular compromise on exam. Compartments and tissues are soft without signs of compartment syndrome. Pain is felt appropriate for further evaluation on an outpatient basis. Imaging Data My impression: Images reviewed, interpreted by radiologist, agree, see report. Radiologist's impression: EXAMINATION: [id number] DATE: 03/22/2024 12:06 INDICATION: Diffuse right knee pain post fall TECHNIQUE: AP and lateral views of the right knee were obtained. COMPARISON: None. FINDINGS: Bone alignment is normal. No fracture or joint effusion. Tricompartmental osteoarthritis with mild joint space narrowing in the medial lateral compartments and small marginal osteophytes in the patellofemoral compartment. Likely degenerative subarticular cystlike change along the patellar apical ridge. There is also a small enthesophyte at the proximal pole of the patella. Atherosclerotic calcifications along the popliteal and distal femoral arteries. Soft tissues are otherwise unremarkable. IMPRESSION: 1. 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 No joint effusion or acute osseous abnormality. Critical Care Time Critical Care Time Critical Care Time: No Discharge Plan Discharge Clinical Impression: Injury of knee Patient Disposition: Home, Self-Care Condition: Stable Instructions: Knee Pain (ED) Additional Instructions: Avoid activities that cause pain until the pain subsides. Ice to the area 20-30 minutes 4-6 times a day Elevate above heart Elastic wrap as directed for comfort for the next 5-7 days Walker as needed for comfort Tylenol for pain Follow up with your primary care provider if the condition is not improving within 1 week. If the condition worsens with numbness, tingling, decrease sensation with weakness seek treatment in the emergency room immediately. Patient Language: Korean Prescriptions: No Action alendronate 70 mg tablet 70 mg PO WEEKLY Rx Instructions: TAKE ON WEDNESDAY carvedilol 12.5 mg tablet 12.5 mg PO BID diltiazem HCl [Cartia XT] 240 mg capsule,extended release 24hr 240 mg PO DAILY polyethylene glycol 3350 [Miralax] 17 gram powder in packet 17 gm PO DAILY Calcium 600 with Vitamin D3 600 mg(1,500mg) -400 unit Tablet,Chewable 1 tablet PO DAILY omeprazole 20 mg Tablet,Delayed Release (Dr/Ec) 20 mg PO BID Follow-up/Referrals: Shabbir Umaña MD [Physician] - PHYSICIAN,HYDRAULIC BOOM OPERATOR [Primary Care Provider] - Time of Disposition: 12:28
== END 2024-03-22 12:36 | disposition home or self-care (01) ==
PROVIDERS: Emergency Provider Nurse Practitioner
DX: S89.91XA Unspecified injury of right lower leg, initial encounter (principal); W19.XXXA Unspecified fall, initial encounter; I10 Essential (primary) hypertension; K21.9 Gastro-esophageal reflux disease without esophagitis; M81.0 Age-related osteoporosis without current pathological fracture; E55.9 Vitamin D deficiency, unspecified
CPT/HCPCS: 73560; 99213; G0463